=== PATIENT | female | born 1965 | race Caucasian/White ===

== ENCOUNTER → 2018-05-23 | Outpatient (REF) | payer BC ==
[2018-05-23 17:17] LABS: C REACTIVE PROTEIN QUANTITATIV < 0.30 MG/DL (0.00-0.30)
[2018-05-26 14:35] LABS: ANTINUCLEAR ANTIBODIES DIRECT Negative (Negative)
== END ==
LOC: M LAB REF 16:26
DX: M25.50 Pain in unspecified joint (principal)
CPT/HCPCS: 86140

== ENCOUNTER → 2018-06-10 | Outpatient (REF) | payer BC ==
[2018-06-13 00:06] LABS: Lyme Disease IgG/IgM Antibodie <0.91 ISR (0.00-0.90); Lyme Disease IgM Ab Quantitati <0.80 index (0.00-0.79)
== END ==
LOC: M LAB REF 16:45
DX: Z11.9 Encounter for screening for infectious and parasitic diseases, unspecified (principal); W57.XXXA Bitten or stung by nonvenomous insect and other nonvenomous arthropods, initial encounter; Y92.9 Unspecified place or not applicable
CPT/HCPCS: 86617

== ENCOUNTER → 2018-09-24 | Outpatient (REF) | payer OTHER | LOC: M LAB REF 13:13 | PROVIDERS: ATTEND Internal Medicine | DX: J03.90 Acute tonsillitis, unspecified (principal) ==

== ENCOUNTER → 2019-06-01 | Outpatient (REF) | payer OTHER | LOC: M LAB REF 12:56 | PROVIDERS: ATTEND Internal Medicine | DX: M25.512 Pain in left shoulder (principal); J03.90 Acute tonsillitis, unspecified; A69.20 Lyme disease, unspecified ==